=== PATIENT | female | born 1980 | race Caucasian/White ===

== ENCOUNTER 2020-01-19 22:15 | Emergency (ER) | payer OTHER ==
[~2020-01-19] VITALS: Ht 152.4 cm; Wt 54.5 kg
[2020-01-19 22:33] VITALS: Ht 152.4 cm; Wt 54.5 kg
[2020-01-19] MEDS ORDERED: PROTONIX20 MG PO (22:34)
[2020-01-19] MEDS ORDERED: CARAFATE1 G (22:35)
[2020-01-19] MEDS ORDERED: TEGRETOL XR200 M1 PO (22:35)
[2020-01-19] MEDS ORDERED: NEURONTIN600 MG (22:35)
[2020-01-19 23:46] VITALS: BP 112/70
== END 2020-01-19 23:46 | disposition home or self-care (01) ==
LOC: D.ER 22:15
DX: G50.0 Trigeminal neuralgia (principal)